=== PATIENT | male | born 1950 | race Caucasian/White ===

== ENCOUNTER → 2016-06-21 | Outpatient (CLI) | payer MEDICARE ==
[~2016-06-21] MED LIST: BENADRYL-DPS25 MG PO; ELAVIL-DPS50 MG PO; FLOMAX DPS0.4 MG PO; LEVOTHYROXINE75 MCG PO; LIDOCAINE700 MG TD; MAALOX DPS30 ML PO; MIRALAX PACKET17 GM PO; OXY-CONTIN20 MG PO; PRILOSEC DPS20 MG PO; PROZAC DPS20 MG PO; SURFAK DPS240 MG PO; TYLENOL DP650 MG/20. PO; TYLENOL DPS325 MG PO; TYLENOL-DPS650 MG PR; VALIUM-DPS10 MG PO; [UNRECOGNIZED DRUG - OTHER] PO; [UNRECOGNIZED DRUG - OTHER] PO
== END | disposition home or self-care (01) ==
LOC: RAD.S 15:30
DX: M79.604 Pain in right leg (principal); M79.89 Other specified soft tissue disorders; M79.671 Pain in right foot; M25.474 Effusion, right foot

== ENCOUNTER 2016-07-06 17:10 | Emergency (ER) | payer MEDICARE ==
--- NOTE | 2016-07-17 09:41 | ER ---
ADMIT: 07/06/2016 RM/LOC: ER [facility] MR#: [id number] [address] [id number] PAUL CARLSON [address] [place] [address] Emergency Room Report SEX: M AGE: 65 : 1950 DATE: 07/06/2016 ADDENDUM: CHIEF COMPLAINT: Sore on the top of the right foot. HISTORY OF PRESENT ILLNESS: This is a 65-year-old, who has a known cellulitis to his right foot. He was started on Cipro, it sounds like about a week ago. The reason they come in today is because it just has not completely resolved, but according to his neighbor says it actually is improved quite a bit. He did have redness over the whole entire foot and going up the leg. Now there is a portion of it that is just about 5 cm in diameter. EMERGENCY ROOM COURSE: I gave him Rocdavidhin here in the emergency room. I am discharging him home, having him continue the Cipro. They are going to follow up with Dr. Rivas on Friday to recheck. Told him to return to the ER if it worsens within the next 24 hours. CLINICAL IMPRESSION: Cellulitis to the right foot, improving. ATUL Bowen / Ti Wetzel MD / alysia JOB #: [id number] CC: Ti Wetzel MD, Attending Physician Nazia Rivas MD, Family Physician
== END 2016-07-06 19:52 | disposition home or self-care (01) ==
LOC: ER 17:10
DX: L03.115 Cellulitis of right lower limb (principal); I10 Essential (primary) hypertension; E03.9 Hypothyroidism, unspecified; F17.210 Nicotine dependence, cigarettes, uncomplicated; Z88.8 Allergy status to other drugs, medicaments and biological substances; Z79.899 Other long term (current) drug therapy

== ENCOUNTER 2016-08-09 15:28 | Emergency (ER) | payer MEDICARE, MEDICAID ==
--- NOTE | 2016-08-15 09:08 | ER ---
ADMIT: 08/09/2016 RM/LOC: ER [facility] MR#: [id number] [address] [id number] JONATHANGriffinPAUL [address] [place] [address] Emergency Room Report SEX: M AGE: 65 : 1950 DATE: 08/09/2016 CHIEF COMPLAINT: Fall, left shoulder pain. HISTORY OF PRESENT ILLNESS: A 65-year-old male, who presents to the ER after sustaining a fall from a standing position last night. States he was walking at home when he tripped, fell, and landed on his left shoulder. Rates his pain as a 10/10. Does have chronic low back pain. States the pain in his back is about where it typically is. However, pain in his shoulder is worse. Did not hit his head. No loss of consciousness. Denies any numbness in his extremity. Relates he has extreme weakness, unable to raise his arm above the shoulder. He is on multiple narcotic pain medications for back pain, degenerative changes in the spine. COURSE IN THE ER: GENERAL: The patient was examined. Afebrile and nontoxic, in no acute distress. HEAD: Normocephalic and atraumatic. NECK: Nontender. Painless range of motion. EYES: Equal and reactive. CHEST: Nontender. Breath sounds equal bilaterally. ABDOMEN: Soft and nontender. NEURO: He is alert and oriented. Sensation is normal in the upper extremities compared bilaterally. Motor is intact however, limited secondary to pain. SKIN: Warm, dry. BACK: He does have paravertebral tenderness in the low back. : No loss of bowel or bladder function. EXTREMITIES: Pelvis is stable. Hips nontender. He has tenderness to palpation about the entire left shoulder into the clavicle, trapezius, and posterior periscapular, most tender on the lateral aspect of the left shoulder. Greatly limited in strength secondary to pain however, he is able to initiate. Motor intact to light touch distally. Radial pulses are good bilaterally. IMAGING: I did get x-ray imaging of the left shoulder today. Significant for some degenerative changes, no acute fractures or dislocations. He was given Percocet 5/325 two tabs p.o. for pain control. He was also placed in a shoulder immobilizer per his request when he is up and active so that he is able to have less pain when he is outside. IMPRESSION: 1. Left shoulder contusion. 2. Left shoulder weakness, concern for possible rotator cuff pathology. 3. Chronic pain primarily low back. ADMIT: 08/09/2016 RM/LOC: [facility] MR#: [id number] [address] [place] [id number] PAUL CARLSON John [address] [place] [address] Emergency Room Report SEX: M AGE: 65 : 1950 DISPOSITION: The patient was discharged home to continue his pain medications as prescribed. Activity as tolerated. He is to wear the shoulder immobilizer as needed. Return with any worsening signs or symptoms. Follow up with Dr. Rivas or Dr. Rubio next week as they do think he will need either further imaging or possible physical therapy referral. Did caution him driving or taking Tylenol if he is going to use the narcotic pain medications. He is not sure if he was using a mixed narcotic Tylenol prescription. Rest, ice, compress, elevate, ice or heat to the shoulder as needed. Questions sought and answered to the best of my ability and to the patient's satisfaction. Discharged in stable condition. ATUL Green / Harrison Costa MD / alysia JOB #: [id number] CC: Harrison Costa MD, Attending Physician Nazia Rivas MD, Family Physician Madhu Rubio MD
== END 2016-08-09 18:05 | disposition home or self-care (01) ==
LOC: ER 15:28
DX: S40.012A Contusion of left shoulder, initial encounter (principal); G89.29 Other chronic pain; M54.5 Low back pain; W01.0XXA Fall on same level from slipping, tripping and stumbling without subsequent striking against object, initial encounter; Y92.009 Unspecified place in unspecified non-institutional (private) residence as the place of occurrence of the external cause

== ENCOUNTER → 2016-08-16 | Outpatient (CLI) | payer MEDICARE | END | disposition home or self-care (01) | LOC: RAD.S 08-12 16:17 → PTH.S 10:15 → RAD.S 10:45 | DX: M25.512 Pain in left shoulder (principal); M19.012 Primary osteoarthritis, left shoulder; M75.92 Shoulder lesion, unspecified, left shoulder; M12.812 Other specific arthropathies, not elsewhere classified, left shoulder; M75.52 Bursitis of left shoulder ==